=== PATIENT | male | born 2005 | race Caucasian/White ===

== ENCOUNTER 2025-05-15 23:34 | Emergency (ER) | payer OTHER | END 2025-05-16 00:50 | disposition home or self-care (01) | LOC: FB.ED 23:34 → EDBD 23:34 → FB.ED 05-16 00:50 | DX: S92.512A Displaced fracture of proximal phalanx of left lesser toe(s), initial encounter for closed fracture (principal); W19.XXXA Unspecified fall, initial encounter | CPT/HCPCS: 73660; 99283; A9270 ==